=== PATIENT | female | born 1955 | race Caucasian/White ===

== ENCOUNTER 2020-12-14 17:38 | Observation (INO) ==
[2020-12-14 21:15] LABS: Basophils # 0.1 10*3/uL (0.0-0.2); Basophils % 0.5 % (0.0-0.8); Eosinophils # 0.3 10*3/uL (0.0-0.87); Eosinophils % 3.6 % (0.00-10.9); Hematocrit 22.1 VOL% (35.7-47.0); Hemoglobin 6.8 GM/DL (12.0-16.0); Immature Granulocytes % 0.5 %; Immature Granulocytes Absolute 0.05 #; Lymphocytes # 1.5 10*3/uL (1.4-4.0); Lymphocytes % 15.9 % (21.3-54.2); Mean Corpuscular HGB Conc 30.8 GM/DL (32-36); Mean Corpuscular Volume 94.4 FL (87-102); Mean Platelet Volume 9.4 FL (9.6-12.0); Monocytes % 11.7 % (1.7-12.7); Neutrophils % 67.8 % (38.7-73.9); Platelet Count 351 T/CUMM (130-400); Red Blood Count 2.34 MC/CUMM (3.8-5.5); Red Cell Distribution Width 16.8 % (9.3-17.3); White Blood Count 9.5 T/CUMM (4-12)
[2020-12-14 21:40] LABS: Albumin 3.1 G/DL (3.4-5.0); Bilirubin,Total 0.4 MG/DL (0.2-1.0); Osmolality,Calculated 284.7 MOS/KG (273-304); Potassium 3.2 MMOL/L (3.5-5.1); Total Protein 7.5 G/DL (6.4-8.2)
[2020-12-14] MEDS ORDERED: SODIUM CHLORIDE 0.9% 1,000 ML IV PRN (22:20)
[2020-12-14] MEDS ORDERED: POTASSIUM CHLORIDE 20 MEQ TABLET PO STA (22:21)
[2020-12-14] MEDS ORDERED: MORPHINE 4 MG/1 ML VIAL IV PRN (22:22)
[2020-12-14] MEDS ORDERED: BISACODYL 5 MG TABLET PO PRN (22:22)
[2020-12-14] MEDS ORDERED: ACETAMINOPHEN 325 MG TABLET PO PRN (22:22)
[2020-12-14] MEDS ORDERED: diphenhydrAMINE CAP 25 MG CAPSULE PO PRN (22:22)
[2020-12-14] MEDS ORDERED: DEXTROSE 50% 25 GM/50 ML VIAL IV PRN ×2 (22:22)
[2020-12-14] MEDS ORDERED: GLUCAGON 1 MG VIAL IM PRN ×2 (22:22)
[2020-12-14] MEDS ORDERED: NICOTINE 21 MG/24 HR PATCH TRANSDERM PRN (22:22)
[2020-12-14] MEDS ORDERED: guaiFENesin/DM ER 600-30 MG TABLET PO PRN (22:22)
[2020-12-14] MEDS ORDERED: hydrALAZINE 20 MG/1 ML VIAL IV PRN (22:22)
[2020-12-15] MEDS: INSULIN LISPRO 100 UNIT/ML SUBCUT SCH ×4 (07:46→21:33)
[2020-12-15] MEDS: PANTOPRAZOLE 40 MG TABLET PO SCH (09:01)
[2020-12-15 09:35] LABS: Basophils % 0.3 % (0.0-0.8); Eosinophils # 0.3 10*3/uL (0.0-0.87); Eosinophils % 2.9 % (0.00-10.9); Immature Granulocytes % 0.7 %; Immature Granulocytes Absolute 0.06 #; Mean Corpuscular HGB Conc 32.5 GM/DL (32-36); Mean Corpuscular Volume 86.7 FL (87-102); Mean Platelet Volume 9.3 FL (9.6-12.0); Monocytes % 10.2 % (1.7-12.7); Neutrophils % 74.9 % (38.7-73.9); Platelet Count 289 T/CUMM (130-400); Red Cell Distribution Width 18.7 % (9.3-17.3); White Blood Count 8.9 T/CUMM (4-12)
[2020-12-15 09:36] LABS: Hemoglobin 9.1 GM/DL (12.0-16.0); Red Blood Count 3.23 MC/CUMM (3.8-5.5)
[2020-12-15] MEDS: FERROUS SULFATE 325 MG TABLET PO SCH ×2 (17:18→21:11)
[2020-12-16 05:32] LABS: Basophils # 0.1 10*3/uL (0.0-0.2); Basophils % 0.6 % (0.0-0.8); Eosinophils # 0.4 10*3/uL (0.0-0.87); Eosinophils % 4.3 % (0.00-10.9); Hematocrit 30.7 VOL% (35.7-47.0); Immature Granulocytes % 0.5 %; Immature Granulocytes Absolute 0.04 #; Lymphocytes # 1.3 10*3/uL (1.4-4.0); Lymphocytes % 15.1 % (21.3-54.2); Mean Corpuscular HGB Conc 32.6 GM/DL (32-36); Mean Corpuscular Volume 87.2 FL (87-102); Mean Platelet Volume 9.2 FL (9.6-12.0); Monocytes % 13.5 % (1.7-12.7); Platelet Count 259 T/CUMM (130-400); Red Blood Count 3.52 MC/CUMM (3.8-5.5); Red Cell Distribution Width 18.8 % (9.3-17.3); White Blood Count 8.8 T/CUMM (4-12)
[2020-12-16 05:55] LABS: Albumin 2.9 G/DL (3.4-5.0); Bilirubin,Total 0.6 MG/DL (0.2-1.0); Calcium 9.2 MG/DL (8.5-10.1); Osmolality,Calculated 276.8 MOS/KG (273-304); Potassium 3.9 MMOL/L (3.5-5.1); Total Protein 7.2 G/DL (6.4-8.2)
[2020-12-16] MEDS: FERROUS SULFATE 325 MG TABLET PO SCH (08:32)
[2020-12-16] MEDS: PANTOPRAZOLE 40 MG TABLET PO SCH (08:32)
[2020-12-16] MEDS: INSULIN LISPRO 100 UNIT/ML SUBCUT SCH ×2 (08:37→12:50)
[2020-12-16 13:23] VITALS: BP 152/55
== END 2020-12-16 15:01 ==
LOC: N.EDINP 17:38 → N.ED 17:38 → N.3E 22:53
PROVIDERS: ADMIT Emergency Medicine; ATTEND Emergency Medicine